=== PATIENT | female | born 1975 | race Caucasian/White ===

== ENCOUNTER 2019-01-21 18:43 | Emergency (ER) | payer OTHER ==
[~2019-01-21] VITALS: Ht 157.5 cm; Wt 101.0 kg
[~2019-01-21 18:43] MED LIST: BENA20TA65 PO; IBUP-1542 PO
[2019-01-21 18:45] VITALS: Ht 157.5 cm; Wt 101.0 kg
[2019-01-21] MEDS ORDERED: IBUPROFEN 600 MG TAB PO ONE (19:30)
--- NOTE | 2019-01-21 19:37 | ERD ---
ER Documentation Chief Complaint Chief Complaint HEADACHE XTODAY; HX OF BUCHANAN-NONCOMPLIANT WITH BP MEDS HPI 43-year-old FEmale presents with a bitemporal headache starting today. She believes it is due to her high blood pressure. She is admittedly noncompliant with blood pressure medicine. She last took medication 3 months ago and is uncertain the medication. She denies chest pain, shortness of breath, fevers, abdominal pain, deficits. ROS All systems reviewed and are negative except as per history of present illness. Medications Home Meds Active Scripts Ibuprofen* (Motrin*) 600 Mg Tab, 600 MG PO Q6, #20 TAB Prov:STANTON ALATORRE MD 01/21/19 Benazepril Hcl* (Lotensin*) 20 Mg Tablet, 20 MG PO DAILY, #30 TAB Prov:STANTON ALATORRE MD 01/21/19 PMhx/Soc History of Surgery: Yes (Cholecystectomy) Anesthesia Reaction: No Hx Neurological Disorder: No Hx Respiratory Disorders: No Hx Cardiac Disorders: Yes (HTN) Hx Miscellaneous Medical Probl: No Hx Alcohol Use: Yes Hx Substance Use: No Hx Tobacco Use: Yes Smoking Status: Current every day smoker FmHx Family History: diabetes Physical Exam Vitals Vital Signs Date Temp Pulse Resp B/P (MAP) Pulse Ox O2 O2 Flow FiO2 Time Delivery Rate 01/21/19 98.6 81 18 186/113 99 20:35 (137) 01/21/19 97.2 91 19 180/95 99 18:45 (123) Physical Exam Const: No acute distress Head: Atraumatic Eyes: Normal Conjunctiva ENT: Normal External Ears, Nose and Mouth. Neck: Full range of motion. No meningismus. Resp: Clear to auscultation bilaterally Cardio: Regular rate and rhythm, no murmurs Abd: Soft, non tender, non distended. Normal bowel sounds Skin: No petechiae or rashes Back: No midline or flank tenderness Ext: No cyanosis, or edema Neur: Awake and alert Psych: Normal Mood and Affect Results 24 hrs Laboratory Tests Test 01/21/19 19:26 01/21/19 19:29 POC Beta HCG, Qualitative NEGATIVE Bedside Urine pH (LAB) 6.5 Bedside Urine Protein (LAB) 1+ Bedside Urine Glucose (UA) Negative Bedside Urine Ketones (LAB) Trace Bedside Urine Blood 3+ Bedside Urine Nitrite (LAB) Negative Bedside Urine Leukocyte Esterase (L Negative Current Medications Medications Dose Sig/Arley Start Time Status Last (Trade) Ordered Route PRN Stop Time Admin Dose Reason Admin Ibuprofen 600 mg ONCE ONCE 01/21/19 DC 01/21/19 (Motrin) PO 19:30 01/21/19 19:22 19:31 Procedures/MDM Urine shows hemoglobin. No leukocytes. No glucose or protein. hCG negative. Patient presents with a history of bitemporal headache suggestive of a tension headache. She is also has elevated blood pressure. She has no signs of endorgan damage or hypertensive emergency. She is otherwise well-appearing without complaints of chest pain, shortness of breath, no appreciable concerning signs or symptoms. We will initiate Lotensin, ibuprofen for headache and hypertension treatment. She is advised to follow-up with primary doctor, return for new worsening symptoms otherwise drink plenty fluids, follow-up as directed with primary doctor. The patient was stable with no new complaints during the ER course. Clinically, there is no current evidence to suggest meningitis, sepsis, acute abdomen, pneumonia, stroke, acute coronary syndrome, pulmonary embolism, aortic dissection or any other emergent condition appearing to require further evaluation or hospitalization. Patient counseled regarding my diagnostic impression and care plan. Prior to discharge all questions answered. Pt agrees with treatment plan and understands strict return precautions. Pt is instructed to follow up with primary care provider within 24-48 hours. Precautionary instructions provided including instructions to return to the ER if not improving or for any worsening or changing symptoms or concerns. Disclaimer: Inadvertent spelling and grammatical errors are likely due to EHR/dictation software use and do not reflect on the overall quality of patient care. Also, please note that the electronic time recorded on this note does not necessarily reflect the actual time of the patient encounter. The patient's blood pressure was elevated (>120/80) but appears stable without evidence of hypertension emergency or urgency. The patient was counseled about the risks of hypertension and urged to pursue outpatient monitoring and therapy within a week with their primary care physician. I discussed the findings with the patient. I advised the patient to follow-up wi th the primary physician in about 1-2 days, sooner if needed and return if any concern. Departure Diagnosis: Primary Impression: Hypertension Hypertension type: unspecified Qualified Codes: I10 - Essential (primary) hypertension Additional Impression: Headache Headache type: unspecified Headache chronicity pattern: unspecified patter n Intractability: not intractable Qualified Codes: R51 - Headache Condition: Stable Patient Instructions: Self-Care for Headaches, High Blood Pressure (Hypertension) Additional Instructions: Recheck with primary doctor or for new worsening symptoms. Drink plenty fluids at home. STANTON ALATORRE MD Jan 21, 2019 19:37
[2019-01-21 20:35] VITALS: BP 186/113; PULSE 81; RESP 18
== END 2019-01-21 20:36 | disposition home or self-care (01) ==
LOC: FTE 18:43
DX: I10 Essential (primary) hypertension (principal); F17.210 Nicotine dependence, cigarettes, uncomplicated
CPT/HCPCS: 81003; 81025; Z7502; Z7610; 99283